=== PATIENT | female | born 1975 | race Caucasian/White ===

== ENCOUNTER → 2019-12-08 13:35 | Outpatient (BNVA) | payer BC, SELFPAY | PROVIDERS: Family Provider Nurse Practitioner; PCP Nurse Practitioner; Visit Provider Nurse Practitioner | DX: Z01.89 Encounter for other specified special examinations (principal) ==

== ENCOUNTER → 2019-12-08 15:38 | Outpatient (BNVA) | payer BC, SELFPAY | PROVIDERS: Family Provider Nurse Practitioner; PCP Nurse Practitioner; Visit Provider Nurse Practitioner | DX: M25.512 Pain in left shoulder (principal) | CPT/HCPCS: 73030 ==

== ENCOUNTER → 2020-01-04 11:14 | Outpatient (BNVA) | payer BC, SELFPAY | PROVIDERS: Family Provider Nurse Practitioner; PCP Nurse Practitioner; Visit Provider Nurse Practitioner | DX: E55.9 Vitamin D deficiency, unspecified (principal); M79.10 Myalgia, unspecified site | CPT/HCPCS: 80053; 82306; 82607; 83735 ==

== ENCOUNTER 2020-01-27 06:00 | Outpatient (RCR) | payer BC, SELFPAY | END 2020-02-15 23:59 | disposition home or self-care (01) | LOC: TPT 06:00 | PROVIDERS: Family Provider Nurse Practitioner; PCP Nurse Practitioner; Referring Provider Nurse Practitioner; Visit Provider Nurse Practitioner | DX: M25.512 Pain in left shoulder (principal) | CPT/HCPCS: 97110; 97140; 97161; 97530 ==

== ENCOUNTER 2020-02-16 06:00 | Outpatient (RCR) | payer BC, SELFPAY | END 2020-03-16 23:59 | disposition home or self-care (01) | LOC: TPT 06:00 | PROVIDERS: Family Provider Nurse Practitioner; PCP Nurse Practitioner; Referring Provider Nurse Practitioner; Visit Provider Nurse Practitioner | DX: M25.512 Pain in left shoulder (principal) | CPT/HCPCS: 97110; 97140; 97164; 97530 ==

== ENCOUNTER 2020-03-17 06:00 | Outpatient (RCR) | payer BC, SELFPAY | END 2020-04-16 23:59 | disposition home or self-care (01) | LOC: TPT 06:00 | PROVIDERS: Family Provider Nurse Practitioner; PCP Nurse Practitioner; Referring Provider Nurse Practitioner; Visit Provider Nurse Practitioner | DX: M25.512 Pain in left shoulder (principal) | CPT/HCPCS: 97110; 97140; 97530 ==

== ENCOUNTER 2020-04-17 06:00 | Outpatient (RCR) | payer BC, SELFPAY | END 2020-05-16 23:59 | disposition home or self-care (01) | LOC: TPT 06:00 | PROVIDERS: PCP Nurse Practitioner; Visit Provider Nurse Practitioner | DX: M25.512 Pain in left shoulder (principal) | CPT/HCPCS: 97110 ==

== ENCOUNTER 2020-05-17 06:00 | Outpatient (RCR) | payer BC, SELFPAY | END 2020-06-16 23:59 | disposition home or self-care (01) | LOC: TPT 06:00 | PROVIDERS: PCP Nurse Practitioner; Visit Provider Nurse Practitioner | DX: M25.512 Pain in left shoulder (principal) | CPT/HCPCS: 97110 ==

== ENCOUNTER 2021-02-02 15:57 | Outpatient (CLI) | payer BC, SELFPAY ==
--- NOTE | 2021-02-02 16:12 | XRR_ITS ---
PROCEDURE INFORMATION: Exam: XR Left Shoulder Exam date and time: 02/02/2021 4:17 PM Age: 45 years old Clinical indication: Shoulder; Left; Patient HX: Hurt lifting weights in 2019; Pain has not gone away; Additional info: Leftshoulder pain TECHNIQUE: Imaging protocol: XR Left shoulder. Views: 2 or more views. COMPARISON: CR XR shoulder LT min 2V* [id number] 12/08/2019 3:40 PM FINDINGS: Bones/joints: No acute osseous pathology. Anatomic alignment. Soft tissues: Unremarkable soft tissues. XR/XR shoulder LT min 2V* [id number] IMPRESSION: No acute osseous pathology.
== END 2021-02-02 15:58 | disposition home or self-care (01) ==
PROVIDERS: PCP Nurse Practitioner; Visit Provider Nurse Practitioner Family
DX: M25.512 Pain in left shoulder (principal)
CPT/HCPCS: 73030

== ENCOUNTER 2021-03-15 07:58 | Outpatient (CLI) | payer BC, SELFPAY ==
--- NOTE | 2021-03-15 08:02 | MM_ITS ---
WS: [id number] BILATERAL DIGITAL SCREENING MAMMOGRAPHY WITH CAD CLINICAL INFORMATION: SCREENING HISTORY: Screening mammogram. No current complaints. COMPARISON: June 20, 2016 TECHNIQUE: Bilateral CC and MLO views. FINDINGS: The breasts are composed of heterogeneous fibroglandular density tissue, which can limit the detectio n of small underlying mass lesions. 12 mm ovoid nodular density mid depth left breast is new from pre vious. This may represent an incidental cyst but recommend further evaluation with left diagnostic ma mmography and ultrasound. Lucent centered calcifications. 2.0 cm ovoid density upper outer right breast is more conspicuous com pared to 2016. Recommend further evaluation with right diagnostic mammography and ultrasound. MM/[place] [id number] IMPRESSION: BI-RADS: 0-Incomplete: Need additional imaging evaluation FOLLOW UP: Need Additional Imaging RECOMMEND BILATERAL BREAST DIAGNOSTIC MAMMOGRAPHY AND ULTRASOUND FOR FURTHER EV ALUATION OF THE OVOID DENSITIES
== END 2021-03-15 07:59 | disposition home or self-care (01) ==
LOC: RADSHAW 07:59
PROVIDERS: PCP Nurse Practitioner; Visit Provider Nurse Practitioner Family
DX: Z12.31 Encounter for screening mammogram for malignant neoplasm of breast (principal)
CPT/HCPCS: 77067

== ENCOUNTER 2021-03-23 09:22 | Outpatient (CLI) | payer BC, SELFPAY ==
--- NOTE | 2021-03-23 09:28 | MM_ITS ---
WS: [id number] Bilateral diagnostic digital mammogram, 03/23/2021 Clinical Data: R92.8 OTHER ABNORMAL FINDINGS ON DIAG IMAGING OF BREAST Comparison: 03/15/2021, 06/20/2016. Findings: Bilateral compression views in the MLO and CC projections were obtained. In the central portion of the left breast 5 cm posterior to nipple is a smoothly bordered round densi ty measuring 1.4 cm. There are no spiculations or calcifications associated with this density. In the right breast there is increased tissue density in the upper outer quadrant. No spiculated mass es or clustered calcifications are seen. MM/[id number] Impression: 1. Round density in left breast and left breast ultrasound will be performed. 2. Increased tissue density in upper outer quadrant right breast and right wu st ultrasound will be performed. BIRADS: 2-Benign FOLLOW UP: See Report The CAD order checker was used.
--- NOTE | 2021-03-23 09:28 | US_ITS ---
WS: [id number] Bilateral breast ultrasound, 03/23/2021 Clinical Data: R92.8 OTHER ABNORMAL FINDINGS ON DIAG IMAGING OF BREAST Comparison: Mammogram, 03/23/2021 Findings: Right breast ultrasound: In the upper outer quadrant of the right breast there are 4 cysts. The largest cyst 2 cm from the nip ple at 12:00 position is 1.12 x 1.34 x 1.71 cm. The other cysts also in the upper outer quadrant at 1 0:00 measure 0.48 x 0.30 x 0.44 cm, 0.46 x 0.71 x 0.76 cm and 0.46 x 0.68 x 0.86 cm. The last cyst h as increased echoes within but a smooth border and probably represents a complex cyst. Left breast ultrasound: In the 12:00 position in the subareolar area there is a simple cyst measuring 0.95 x 1.24 x 1.47 cm w hich probably represents the density noted on the mammogram. There is also a smaller cyst at 12:00 me asuring 0.36 x 0.38 x 0.42 cm. US/US breast BI limited* [id number] Impression: 1. 4 right breast cysts, only one of which has scattered internal echoes. 2. 2 simple left breast cysts. 3. Recommend return to annual screening mammograms BIRADS: 2-Benign FOLLOW UP: 1 Year Follow-up
== END 2021-03-23 09:23 | disposition home or self-care (01) ==
LOC: RADSHAW 09:23
PROVIDERS: PCP Nurse Practitioner Family; Visit Provider Nurse Practitioner Family
DX: R92.8 Other abnormal and inconclusive findings on diagnostic imaging of breast (principal)
CPT/HCPCS: 76642; 77066